=== PATIENT | male | born 1945 | race Caucasian/White ===

== ENCOUNTER 2021-10-05 11:02 | Inpatient (IN) | payer OTHER, MEDICAID ==
[~2021-10-05] VITALS: Ht 165.1 cm; Wt 89.4 kg
[2021-10-05 11:47] LABS: CHLORIDE 106 mEq/L (98-107)
[2021-10-05 11:50] LABS: PROTHROMBIN TIME 11.2 sec (9.6-11.0)
[2021-10-05 11:53] LABS: BASOPHILS % 0.2 % (0.0-2.0); EOSINOPHILS % 0.3 % (0.0-5.0); HEMATOCRIT. 23.2 % (42.0-52.0); HEMOGLOBIN. 7.7 g/dL (14.0-18.0); LYMPHOCYTES % 10.8 % (20.0-50.0); MEAN CORPUSCULAR HEMOGLOBIN 30.8 pg (28.0-32.0); MEAN CORPUSCULAR VOLUME 93.3 fL (80.0-94.0); MEAN PLATELET VOLUME 9.6 fl (7.4-10.4); MONOCYTES % 5.4 % (2.0-8.0); NEUTROPHILS % 83.3 % (40.0-76.0); PLATELET 274 x1000/uL (130-400); RED BLOOD CELL COUNT 2.49 mill/uL (4.7-6.1); RED CELL DISTRIBUTION WIDTH 14.8 % (11.6-14.6)
[2021-10-05 12:16] LABS: CLARITY URINE CLOUDY (CLEAR); COLOR URINE DARK YELLOW (YELLOW); KETONES URINE TRACE (NEGATIVE); LEUKOCYTE ESTERASE URINE TRACE (NEGATIVE); NITRITE URINE NEGATIVE (NEGATIVE); OCCULT BLOOD URINE NEGATIVE (NEGATIVE); PROTEIN URINE 2+ (NEGATIVE); SPECIFIC GRAVITY URINE 1.026 (1.005-1.030)
[2021-10-05] MEDS ORDERED: PANTOPRAZOLE SODIUM 40 MG/VIAL IV STA (15:22)
[2021-10-05] MEDS ORDERED: SODIUM CHLORIDE 0.45% 1,000 ML IV ONE (15:30)
[2021-10-05] MEDS ORDERED: LORAZEPAM 0.5MG TABLET PO PRN (16:45)
[2021-10-05] MEDS ORDERED: GUAIFENESIN 200MG/10ML SUGAR FREE UDC PO PRN (16:45)
[2021-10-05] MEDS ORDERED: ONDANSETRON HCL 4MG/2ML INJ IV PRN (16:45)
[2021-10-05] MEDS ORDERED: DIPHENHYDRAMINE 50MG/ML VIAL IV PRN (16:45)
[2021-10-05] MEDS ORDERED: MAGNESIUM/ALUMINUM HYDROXIDE/SIMETHICONE 30ML UDC PO PRN (16:45)
[2021-10-05] MEDS ORDERED: ACETAMINOPHEN 650MG SUPP PR PRN (16:45)
[2021-10-05] MEDS ORDERED: NA PHOS,M-B/NA PHOS,DI-BA ENEMA 118ML PR PRN (16:45)
[2021-10-05] MEDS ORDERED: IPRATROPIUM/ALBUTEROL 0.5-3(2.5)MG/3ML NEB NEB PRN (16:45)
[2021-10-05] MEDS ORDERED: HYDROCODONE/ACETAMINOPHEN 5/325MG TABLET PO PRN (16:45)
[2021-10-05] MEDS ORDERED: ACETAMINOPHEN 325MG TABLET PO PRN (16:45)
[2021-10-05] MEDS ORDERED: DOCUSATE SODIUM 100MG CAPSULE PO PRN (16:45)
[2021-10-05] MEDS ORDERED: CLONIDINE 0.1MG TABLET PO PRN (16:45)
[2021-10-05] MEDS ORDERED: DEXTROSE 50% WATER 50ML SYRINGE IV PRN (17:00)
[2021-10-05] MEDS ORDERED: NALOXONE HCL 0.4MG/ML VIAL IV PRN (17:15)
[2021-10-05] MEDS: INSULIN LISPRO 100 UNITS/ML SUBCUT SCH ×2 (17:50→21:00)
[2021-10-05] MEDS: PANTOPRAZOLE SODIUM 40 MG/VIAL IV SCH (18:09)
[2021-10-05] MEDS: BLOOD SUGAR DIAGNOSTIC STRIP TEST SCH ×2 (18:16→21:00)
[2021-10-05 18:18] LABS: TOTAL IRON BINDING CAPACITY 355 ug/dL (250-450)
[2021-10-05 18:20] VITALS: BP 103/69
[2021-10-05 18:38] LABS: FOLIC ACID (FOLATE) SERUM 16.9 ng/mL (>5.38)
[2021-10-05 20:00] VITALS: BP 130/59
[2021-10-05 20:37] LABS: HEMATOCRIT 22.2 % (42.0-52.0); HEMOGLOBIN 7.3 g/dL (14.0-18.0)
[2021-10-05 22:28] VITALS: BP 124/65
[2021-10-05] MEDS: CEFTRIAXONE 1,000 MG in DEXTROSE 5% WATER 50 ML IV SCH (22:33)
[2021-10-05 22:47] VITALS: BP 120/69
[2021-10-05 23:47] VITALS: BP 112/59
[2021-10-06] VITALS (8 sets, daily range): BP systolic 110–119; BP diastolic 53–70
[2021-10-06 03:41] LABS: BASOPHILS % 0.1 % (0.0-2.0); EOSINOPHILS % 0.3 % (0.0-5.0); HEMATOCRIT. 24.3 % (42.0-52.0); LYMPHOCYTES % 19.1 % (20.0-50.0); MEAN CORPUSCULAR HEMOGLOBIN 30.3 pg (28.0-32.0); MEAN CORPUSCULAR VOLUME 92.4 fL (80.0-94.0); MEAN PLATELET VOLUME 8.8 fl (7.4-10.4); MONOCYTES % 7.3 % (2.0-8.0); NEUTROPHILS % 73.2 % (40.0-76.0); PLATELET 257 x1000/uL (130-400); RED BLOOD CELL COUNT 2.63 mill/uL (4.7-6.1); RED CELL DISTRIBUTION WIDTH 15.2 % (11.6-14.6)
[2021-10-06 03:51] LABS: CHLORIDE 108 mEq/L (98-107)
[2021-10-06 03:58] LABS: LDL CHOLESTEROL 73 mg/dL (5-100)
[2021-10-06 04:00] LABS: HDL CHOLESTEROL 35 mg/dL (40-59)
[2021-10-06] MEDS: PANTOPRAZOLE SODIUM 40 MG/VIAL IV SCH ×2 (05:38→17:31)
[2021-10-06] MEDS: BLOOD SUGAR DIAGNOSTIC STRIP TEST SCH ×4 (06:30→21:05)
[2021-10-06] MEDS: INSULIN LISPRO 100 UNITS/ML SUBCUT SCH ×4 (07:50→21:00)
[2021-10-06 13:20] LABS: BASOPHILS % 0.3 % (0.0-2.0); EOSINOPHILS % 0.6 % (0.0-5.0); HEMATOCRIT. 23.2 % (42.0-52.0); HEMOGLOBIN. 7.8 g/dL (14.0-18.0); LYMPHOCYTES % 16.2 % (20.0-50.0); MEAN CORPUSCULAR HEMOGLOBIN 30.8 pg (28.0-32.0); MEAN CORPUSCULAR VOLUME 91.1 fL (80.0-94.0); MEAN PLATELET VOLUME 9.3 fl (7.4-10.4); MONOCYTES % 8.5 % (2.0-8.0); NEUTROPHILS % 74.4 % (40.0-76.0); PLATELET 242 x1000/uL (130-400); RED BLOOD CELL COUNT 2.55 mill/uL (4.7-6.1); RED CELL DISTRIBUTION WIDTH 14.9 % (11.6-14.6)
[2021-10-06] MEDS: CEFTRIAXONE 1,000 MG in DEXTROSE 5% WATER 50 ML IV SCH (17:31)
[2021-10-06] MEDS: FERROUS SULFATE 325MG TABLET PO SCH (17:31)
[2021-10-06] MEDS: ASCORBIC ACID 500 MG TABLET PO SCH ×2 (17:31→21:05)
[2021-10-06 20:40] LABS: HEMATOCRIT 24.7 % (42.0-52.0); HEMOGLOBIN 8.3 g/dL (14.0-18.0)
[2021-10-07] VITALS (11 sets, daily range): BP systolic 94–118; BP diastolic 46–66
[2021-10-07 01:26] LABS: HEMATOCRIT 23.1 % (42.0-52.0); HEMOGLOBIN 7.6 g/dL (14.0-18.0)
[2021-10-07] MEDS: PANTOPRAZOLE SODIUM 40 MG/VIAL IV SCH (06:02)
[2021-10-07] MEDS: BLOOD SUGAR DIAGNOSTIC STRIP TEST SCH ×3 (06:23→17:20)
[2021-10-07] MEDS: INSULIN LISPRO 100 UNITS/ML SUBCUT SCH ×3 (07:22→17:22)
[2021-10-07] MEDS: FERROUS SULFATE 325MG TABLET PO SCH ×2 (09:31→17:00)
[2021-10-07] MEDS: ASCORBIC ACID 500 MG TABLET PO SCH (09:31)
[2021-10-07 10:31] LABS: BASOPHILS % 0.3 % (0.0-2.0); CHLORIDE 107 mEq/L (98-107); EOSINOPHILS % 1.5 % (0.0-5.0); HEMATOCRIT. 24.9 % (42.0-52.0); HEMOGLOBIN. 8.2 g/dL (14.0-18.0); LYMPHOCYTES % 19.9 % (20.0-50.0); MEAN CORPUSCULAR HEMOGLOBIN 30.9 pg (28.0-32.0); MEAN CORPUSCULAR VOLUME 93.5 fL (80.0-94.0); MEAN PLATELET VOLUME 9.2 fl (7.4-10.4); MONOCYTES % 6.3 % (2.0-8.0); PLATELET 301 x1000/uL (130-400); RED BLOOD CELL COUNT 2.67 mill/uL (4.7-6.1); RED CELL DISTRIBUTION WIDTH 15.5 % (11.6-14.6)
[2021-10-07 11:24] LABS: HEMATOCRIT 23.1 % (42.0-52.0); HEMOGLOBIN 7.6 g/dL (14.0-18.0)
[2021-10-07] MEDS ORDERED: PANT40SU MT (14:14)
[2021-10-07] MEDS ORDERED: LEVO500T89 MT (14:14)
[2021-10-07 17:10] LABS: HEMATOCRIT 27.1 % (42.0-52.0); HEMOGLOBIN 9.1 g/dL (14.0-18.0)
[2021-10-07 17:19] LABS: PROTHROMBIN TIME 10.8 sec (9.6-11.0)
== END 2021-10-07 17:27 | disposition home or self-care (01) | DRG 378 ==
LOC: ER 11:10 → 6WST 13:14 → ENRESERV 14:23
PROVIDERS: ADMIT Internal Medicine; ATTEND Internal Medicine
PROC: 30233N1 Transfusion of Nonautologous Red Blood Cells into Peripheral Vein, Percutaneous Approach (ICD-10-PCS; principal; 2021-10-05)
DX: K57.31 Diverticulosis of large intestine without perforation or abscess with bleeding (principal); N39.0 Urinary tract infection, site not specified; E78.00 Pure hypercholesterolemia, unspecified; E78.5 Hyperlipidemia, unspecified; I10 Essential (primary) hypertension; D50.0 Iron deficiency anemia secondary to blood loss (chronic); E11.65 Type 2 diabetes mellitus with hyperglycemia; R07.81 Pleurodynia; Z20.822 Contact with and (suspected) exposure to COVID-19
CPT/HCPCS: 36415; 71045; 71111; 74176; 76700; 80048; 80053; 80061; 81003; 82607; 82728; 82746; 82962; 83036; 83540; 83550; 84153; 84443; 85014; 85018; 85025; 85044; 85049; 85384; 86850; 86900; 86920; 87426; 93005; 93306; 93970; 97162; 99285; C9113; J0696; J7060; P9016; G0103

== ENCOUNTER 2021-10-19 12:21 | Emergency (ER) | payer OTHER, MEDICAID ==
[~2021-10-19] VITALS: Ht 167.6 cm; Wt 82.0 kg
[~2021-10-19 12:21] MED LIST: LEVO500T89 MT; PANT40SU MT
[2021-10-19 12:37] VITALS: BP 143/61
[2021-10-19 13:27] LABS: BASOPHILS % 0.9 % (0.0-2.0); EOSINOPHILS % 1.1 % (0.0-5.0); HEMATOCRIT. 28.9 % (42.0-52.0); HEMOGLOBIN. 9.5 g/dL (14.0-18.0); LYMPHOCYTES % 14.7 % (20.0-50.0); MEAN CORPUSCULAR HEMOGLOBIN 28.4 pg (28.0-32.0); MEAN CORPUSCULAR VOLUME 86.3 fL (80.0-94.0); MEAN PLATELET VOLUME 8.6 fl (7.4-10.4); NEUTROPHILS % 75.3 % (40.0-76.0); PLATELET 352 x1000/uL (130-400); RED BLOOD CELL COUNT 3.34 mill/uL (4.7-6.1); RED CELL DISTRIBUTION WIDTH 15.7 % (11.6-14.6)
[2021-10-19 13:39] LABS: CHLORIDE 108 mEq/L (98-107)
== END 2021-10-19 15:04 | disposition home or self-care (01) ==
LOC: ER 12:21
DX: M62.838 Other muscle spasm (principal)
CPT/HCPCS: 36415; 80048; 83735; 85025; 93970; 99284

== ENCOUNTER 2024-02-18 05:51 | Inpatient (IN) | payer OTHER, MEDICAID, MEDICARE ==
[~2024-02-18] VITALS: Ht 162.6 cm; Wt 81.6 kg
[~2024-02-18 05:51] MED LIST changes: +ATOR10TA69 MT; +CELE-116 PO; -LEVO500T89 MT; +TAMS-11 MT
[2024-02-18] MEDS ORDERED: PANTOPRAZOLE SODIUM 40 MG/VIAL IV ONE (06:45)
[2024-02-18 07:13] LABS: CHLORIDE 108 mEq/L (98-107); SODIUM 136 mEq/L (136-145)
[2024-02-18 07:14] LABS: CALCIUM 9.1 mg/dL (8.7-10.4); CARBON DIOXIDE 24 mEq/L (21-32)
[2024-02-18 07:19] LABS: CREATININE 0.7 mg/dL (0.6-1.3); GLUCOSE 110 mg/dL (70-105); UREA NITROGEN BLOOD 15 mg/dL (9-23)
[2024-02-18 07:26] LABS: BASOPHILS % 0.5 % (0.0-2.0); EOSINOPHILS % 1.6 % (0.0-5.0); HEMATOCRIT. 41.1 % (42.0-52.0); HEMOGLOBIN. 13.1 g/dL (14.0-18.0); LYMPHOCYTES % 26.1 % (20.0-50.0); MEAN CORPUSCULAR HEMOGLOBIN 26.6 pg (28.0-32.0); MEAN CORPUSCULAR HGB CONC 31.9 g/dL (31.0-37.0); MEAN CORPUSCULAR VOLUME 83.3 fL (80.0-94.0); MEAN PLATELET VOLUME 9.1 fl (7.4-10.4); MONOCYTES % 9.6 % (2.0-8.0); NEUTROPHILS % 62.2 % (40.0-76.0); PLATELET 229 x1000/uL (130-400); RED BLOOD CELL COUNT 4.93 mill/uL (4.7-6.1); RED CELL DISTRIBUTION WIDTH 25.5 % (11.6-14.6); WHITE BLOOD COUNT 6.4 x1000/uL (4.5-11.0)
[2024-02-18 07:27] LABS: ADD RBC MORPHOLOGY YES; DIFFERENTIAL COMMENT 1
[2024-02-18] MEDS: PANTOPRAZOLE SODIUM 40 MG/VIAL IV NR (07:58)
[2024-02-18 11:22] LABS: ANISOCYTOSIS 4+; PLATELET ESTIMATE NORMAL
[2024-02-18 13:00] VITALS: BP 147/80; PULSE 65; RESP 18; TEMP 36.55848; TEMP 36.5848; O2SAT 98
[2024-02-18 18:30] VITALS: BP 145/82; PULSE 77; RESP 18; TEMP 37.05852; O2SAT 98
[2024-02-18] MEDS ORDERED: CLONIDINE 0.1MG TABLET PO PRN (19:15)
[2024-02-18] MEDS ORDERED: ACETAMINOPHEN 325MG TABLET PO PRN (19:15)
[2024-02-18] MEDS ORDERED: ONDANSETRON HCL 4MG/2ML INJ IV PRN (19:15)
[2024-02-18 20:00] VITALS: BP 115/72; PULSE 76; RESP 18; TEMP 36.00288; O2SAT 97
[2024-02-18 20:41] LABS: BASOPHILS % 0.3 % (0.0-2.0); HEMATOCRIT. 38.3 % (42.0-52.0); HEMOGLOBIN. 12.4 g/dL (14.0-18.0); LYMPHOCYTES % 20.7 % (20.0-50.0); MEAN CORPUSCULAR HEMOGLOBIN 27.3 pg (28.0-32.0); MEAN CORPUSCULAR HGB CONC 32.5 g/dL (31.0-37.0); MEAN CORPUSCULAR VOLUME 84.1 fL (80.0-94.0); MEAN PLATELET VOLUME 9.2 fl (7.4-10.4); MONOCYTES % 8.5 % (2.0-8.0); NEUTROPHILS % 69.5 % (40.0-76.0); PLATELET 240 x1000/uL (130-400); RED BLOOD CELL COUNT 4.55 mill/uL (4.7-6.1); RED CELL DISTRIBUTION WIDTH 25.4 % (11.6-14.6); WHITE BLOOD COUNT 7.4 x1000/uL (4.5-11.0)
[2024-02-18 20:44] LABS: DIFFERENTIAL COMMENT 1
[2024-02-18] MEDS: METRONIDAZOLE 500 MG PREMIX 100 ML IV SCH (21:51)
[2024-02-18] MEDS: HYDROCORTISONE ACETATE 25MG SUPP PR SCH (21:51)
[2024-02-18] MEDS: CEFTRIAXONE 1GM/50ML 50 ML IV SCH (21:52)
[2024-02-19] VITALS: BP 113/69; PULSE 86; RESP 18; TEMP 36.78072; O2SAT 96
[2024-02-19 04:00] VITALS: BP 123/79; PULSE 72; RESP 16; TEMP 36.05844; O2SAT 98
[2024-02-19] MEDS ORDERED: BACL-141 MT (04:34)
[2024-02-19] MEDS ORDERED: FERR325T6 MT (04:34)
[2024-02-19] MEDS ORDERED: OMEP40CA20 MT (04:34)
[2024-02-19 07:13] LABS: CARBON DIOXIDE 26 mEq/L (21-32); CHLORIDE 106 mEq/L (98-107); POTASSIUM 4.1 mEq/L (3.5-5.1); SODIUM 137 mEq/L (136-145)
[2024-02-19 07:14] LABS: CALCIUM 9.2 mg/dL (8.7-10.4)
[2024-02-19 07:19] LABS: CREATININE 0.6 mg/dL (0.6-1.3)
[2024-02-19 07:20] LABS: GLUCOSE 109 mg/dL (70-105); UREA NITROGEN BLOOD 15 mg/dL (9-23)
[2024-02-19 08:00] VITALS: BP 107/68; PULSE 83; RESP 18; TEMP 36.16956; O2SAT 100
[2024-02-19] MEDS ORDERED: PANTOPRAZOLE SODIUM 40 MG/VIAL IV SCH (09:00)
[2024-02-19] MEDS: PANTOPRAZOLE SODIUM 40 MG/VIAL IV SCH (09:19)
[2024-02-19 12:00] VITALS: BP 97/55; PULSE 79; RESP 18; TEMP 36.50292; O2SAT 99
[2024-02-19 12:05] LABS: ALANINE AMINOTRANSFERASE 17 IU/L (10-49); ALBUMIN 4.1 g/dL (3.2-4.8); ASPARTATE AMINOTRANSFERASE 26 IU/L (<34); BILIRUBIN DIRECT 0.1 mg/dL (<=3.0); BILIRUBIN TOTAL 0.6 mg/dL (0.1-1.0); PROTEIN TOTAL 6.9 g/dL (6.0-8.3)
[2024-02-19 12:23] LABS: HEPATITIS B SURFACE ANTIGEN NEGATIVE (Negative)
[2024-02-19 12:44] LABS: HEPATITIS A AB IGM NEGATIVE (Negative)
[2024-02-19 12:45] LABS: HEPATITIS B CORE AB IGM NEGATIVE (Negative); HEPATITIS C AB NON REACTIVE (Neg) (Negative)
[2024-02-19 16:00] VITALS: BP 135/70; PULSE 87; RESP 18; TEMP 36.72516; O2SAT 99
[2024-02-20] VITALS: BP 94/68; PULSE 87; RESP 18; TEMP 36.114; O2SAT 99
[2024-02-20 04:00] VITALS: BP 107/63; PULSE 84; RESP 18; TEMP 36.3918; O2SAT 98
[2024-02-20 05:35] LABS: CHLORIDE 105 mEq/L (98-107); POTASSIUM 4.2 mEq/L (3.5-5.1); SODIUM 137 mEq/L (136-145)
[2024-02-20 05:36] LABS: CARBON DIOXIDE 28 mEq/L (21-32)
[2024-02-20 05:37] LABS: CALCIUM 9.1 mg/dL (8.7-10.4)
[2024-02-20 05:40] LABS: BASOPHILS % 0.1 % (0.0-2.0); EOSINOPHILS % 1.9 % (0.0-5.0); HEMATOCRIT. 33.1 % (42.0-52.0); HEMOGLOBIN. 10.8 g/dL (14.0-18.0); MEAN CORPUSCULAR HEMOGLOBIN 27.3 pg (28.0-32.0); MEAN CORPUSCULAR HGB CONC 32.7 g/dL (31.0-37.0); MEAN CORPUSCULAR VOLUME 83.4 fL (80.0-94.0); MEAN PLATELET VOLUME 9.6 fl (7.4-10.4); MONOCYTES % 9.1 % (2.0-8.0); NEUTROPHILS % 62.9 % (40.0-76.0); PLATELET 224 x1000/uL (130-400); RED BLOOD CELL COUNT 3.97 mill/uL (4.7-6.1); RED CELL DISTRIBUTION WIDTH 25.7 % (11.6-14.6); WHITE BLOOD COUNT 7.5 x1000/uL (4.5-11.0)
[2024-02-20 05:41] LABS: CREATININE 0.8 mg/dL (0.6-1.3); GLUCOSE 104 mg/dL (70-105); UREA NITROGEN BLOOD 14 mg/dL (9-23)
[2024-02-20 05:42] LABS: ALANINE AMINOTRANSFERASE 16 IU/L (10-49)
[2024-02-20 05:43] LABS: ALBUMIN 4.2 g/dL (3.2-4.8); ASPARTATE AMINOTRANSFERASE 17 IU/L (<34)
[2024-02-20 05:44] LABS: BILIRUBIN TOTAL 0.5 mg/dL (0.1-1.0); PROTEIN TOTAL 6.8 g/dL (6.0-8.3)
[2024-02-20 06:06] LABS: DIFFERENTIAL COMMENT 1
[2024-02-20 08:00] VITALS: BP 124/73; PULSE 74; RESP 18; TEMP 35.89176; O2SAT 99
[2024-02-20 12:00] VITALS: BP 93/69; PULSE 87; RESP 18; TEMP 36.50292; O2SAT 100
[2024-02-20 16:00] VITALS: BP 111/73; PULSE 78; RESP 18; TEMP 36.50292; O2SAT 100
[2024-02-20 20:00] VITALS: BP 108/71; PULSE 80; RESP 18; TEMP 36.3918; O2SAT 95
[2024-02-21] VITALS: BP 103/58; PULSE 68; RESP 18; TEMP 36.3918; O2SAT 99
[2024-02-21 04:00] VITALS: BP 100/53; PULSE 81; RESP 18; TEMP 36.50292; O2SAT 99
[2024-02-21 06:50] LABS: CALCIUM 8.9 mg/dL (8.7-10.4); CARBON DIOXIDE 28 mEq/L (21-32); CHLORIDE 106 mEq/L (98-107); SODIUM 140 mEq/L (136-145)
[2024-02-21 06:55] LABS: CREATININE 0.8 mg/dL (0.6-1.3); GLUCOSE 100 mg/dL (70-105)
[2024-02-21 06:56] LABS: UREA NITROGEN BLOOD 14 mg/dL (9-23)
[2024-02-21 07:10] LABS: BASOPHILS % 0.5 % (0.0-2.0); EOSINOPHILS % 1.9 % (0.0-5.0); HEMATOCRIT. 29.3 % (42.0-52.0); HEMOGLOBIN. 9.7 g/dL (14.0-18.0); LYMPHOCYTES % 27.4 % (20.0-50.0); MEAN CORPUSCULAR HEMOGLOBIN 27.8 pg (28.0-32.0); MEAN CORPUSCULAR HGB CONC 33.2 g/dL (31.0-37.0); MEAN CORPUSCULAR VOLUME 83.7 fL (80.0-94.0); MEAN PLATELET VOLUME 9.6 fl (7.4-10.4); MONOCYTES % 9.5 % (2.0-8.0); NEUTROPHILS % 60.7 % (40.0-76.0); PLATELET 210 x1000/uL (130-400); RED CELL DISTRIBUTION WIDTH 25.2 % (11.6-14.6); WHITE BLOOD COUNT 6.9 x1000/uL (4.5-11.0)
[2024-02-21 07:49] LABS: ADD RBC MORPHOLOGY NO; DIFFERENTIAL COMMENT 1
[2024-02-21 08:00] VITALS: BP 111/72; PULSE 80; RESP 17; TEMP 36.50292; O2SAT 100
[2024-02-21 12:00] VITALS: BP 112/58; PULSE 75; RESP 17; TEMP 36.50292; O2SAT 100
[2024-02-21 16:00] VITALS: BP 99/65; PULSE 85; RESP 17; TEMP 36.61404; O2SAT 99
[2024-02-21 20:00] VITALS: BP 115/62; PULSE 76; RESP 19; TEMP 37.11408; O2SAT 99
[2024-02-21 20:22] LABS: HEMATOCRIT 28.8 % (42.0-52.0); HEMOGLOBIN 9.4 g/dL (14.0-18.0)
[2024-02-22] VITALS: BP 100/64; PULSE 69; RESP 18; TEMP 36.50292; O2SAT 99
[2024-02-22 04:00] VITALS: BP_SYST 106; BP_DIAS 60; BP_DIAS 67; PULSE 82; RESP 18; TEMP 36.3918; O2SAT 99
[2024-02-22 08:00] VITALS: BP 124/56; PULSE 71; RESP 18; TEMP 36.50292; O2SAT 100
[2024-02-22 12:00] VITALS: BP 112/53; PULSE 76; RESP 20; TEMP 36.61404; O2SAT 98
[2024-02-22 16:00] VITALS: BP 105/47; PULSE 73; RESP 18; TEMP 36.55848; O2SAT 99
[2024-02-22 20:00] VITALS: BP 124/74; PULSE 64; RESP 18; TEMP 36.50292; O2SAT 96
[2024-02-23 04:00] VITALS: BP 130/65; PULSE 82; RESP 20; TEMP 36.3918; O2SAT 99
[2024-02-23] MEDS: METRONIDAZOLE 500MG TABLET PO SCH (05:33)
[2024-02-23 06:33] LABS: CALCIUM 9.3 mg/dL (8.7-10.4); CHLORIDE 107 mEq/L (98-107); POTASSIUM 4.1 mEq/L (3.5-5.1); SODIUM 139 mEq/L (136-145)
[2024-02-23 06:35] LABS: CARBON DIOXIDE 27 mEq/L (21-32)
[2024-02-23 06:39] LABS: CREATININE 0.7 mg/dL (0.6-1.3)
[2024-02-23 06:40] LABS: GLUCOSE 98 mg/dL (70-105); UREA NITROGEN BLOOD 12 mg/dL (9-23)
[2024-02-23 06:45] LABS: BASOPHILS % 0.3 % (0.0-2.0); EOSINOPHILS % 1.3 % (0.0-5.0); HEMOGLOBIN. 9.4 g/dL (14.0-18.0); LYMPHOCYTES % 24.1 % (20.0-50.0); MEAN CORPUSCULAR HEMOGLOBIN 27.5 pg (28.0-32.0); MEAN CORPUSCULAR HGB CONC 32.6 g/dL (31.0-37.0); MEAN CORPUSCULAR VOLUME 84.4 fL (80.0-94.0); MEAN PLATELET VOLUME 9.9 fl (7.4-10.4); MONOCYTES % 9.2 % (2.0-8.0); NEUTROPHILS % 65.1 % (40.0-76.0); PLATELET 254 x1000/uL (130-400); RED BLOOD CELL COUNT 3.43 mill/uL (4.7-6.1); RED CELL DISTRIBUTION WIDTH 25.7 % (11.6-14.6); WHITE BLOOD COUNT 7.6 x1000/uL (4.5-11.0)
[2024-02-23 07:17] LABS: DIFFERENTIAL COMMENT 1
[2024-02-23 08:00] VITALS: BP 131/59; PULSE 72; RESP 18; TEMP 36.50292; O2SAT 97
[2024-02-23 12:00] VITALS: BP 128/58; PULSE 77; RESP 18; TEMP 36.55848; O2SAT 98
[2024-02-23 15:33] VITALS: BP 128/58; PULSE 77; TEMP 97.9; O2SAT 99
== END 2024-02-23 17:11 | disposition home or self-care (01) | DRG 379 ==
LOC: ER 05:51 → 8WST 08:08
PROVIDERS: ADMIT Internal Medicine; ATTEND Internal Medicine
DX: K57.33 Diverticulitis of large intestine without perforation or abscess with bleeding (principal); K74.60 Unspecified cirrhosis of liver; N40.0 Benign prostatic hyperplasia without lower urinary tract symptoms; E78.5 Hyperlipidemia, unspecified; D64.9 Anemia, unspecified; I70.0 Atherosclerosis of aorta; N28.1 Cyst of kidney, acquired
CPT/HCPCS: 36415; 74176; 76700; 80048; 80053; 80076; 83735; 85014; 85018; 85025; 86705; 86709; 86850; 86900; 87340; 99285; C1893; J0696; J2470; J3490